=== PATIENT | female | born 1985 | race Caucasian/White ===

== ENCOUNTER 2023-11-23 00:01 | Inpatient (IN) | payer MEDICAID ==
[~2023-11-23] VITALS: Ht 160 cm; Wt 85.3 kg
[2023-11-23] MEDS ORDERED: ONDANSETRON HCL/PF 4 MG/2 ML VIAL ONE ×2 (00:43→03:54)
[2023-11-23] MEDS ORDERED: HYDROMORPHONE 1 MG/1 ML DISP.SYRIN ONE ×2 (00:44→03:55)
[2023-11-23] MEDS: ONDANSETRON HCL/PF - ER 4 MG/2 ML VIAL IV ONE ×2 (00:54→04:00)
[2023-11-23] MEDS: HYDROMORPHONE 1 MG/1 ML DISP.SYRIN IV ONE ×2 (00:54→04:00)
[2023-11-23] MEDS ORDERED: PROPOFOL 20 ML IV ONE (02:07)
[2023-11-23] MEDS: PROPOFOL 200 MG/20 ML VIAL IV ONE ×2 (02:29)
[2023-11-23] MEDS ORDERED: Z GUARD REMEDY 4 OZ OINT TP PRN (04:30)
[2023-11-23] MEDS ORDERED: ONDANSETRON HCL/PF 4 MG/2 ML VIAL IVP PRN (04:30)
[2023-11-23 04:46] VITALS: BP 128/70; TEMP 97.9; O2SAT 100
[2023-11-23 05:39] VITALS: BP 128/70; TEMP 97.9; O2SAT 100
[2023-11-23] MEDS: MORPHINE SULFATE INJ 2 MG/ML DISP.SYRIN IV PRN (05:51)
[2023-11-23 06:50] LABS: BASOPHILS # (AUTO) 0.1 K/uL (0.0-0.2); BASOPHILS % (AUTO) 0.5 % (0.0-2.0); HEMATOCRIT 26 % (33-45); HEMOGLOBIN 8.1 g/dL (11.5-14.8); LYMPHOCYTES % (AUTO) 28.7 % (20.0-44.0); MEAN CORPUSCULAR HEMOGLOBIN 20 PG (26.0-33.0); MEAN CORPUSCULAR HGB CONC 31 g/dl (31.0-36.0); MEAN CORPUSCULAR VOLUME 66 fL (82-100); MONOCYTES # (AUTO) 0.9 K/uL (0.1-1.30); MONOCYTES % (AUTO) 8.2 % (2.0-12.0); NEUTROPHILS # (AUTO) 6.5 K/uL (1.8-8.9); NEUTROPHILS % (AUTO) 62.6 % (43.0-81.0); PLATELET COUNT (AUTO) 287 K/uL (150-450); RED BLOOD CELL COUNT(AUTO) 4.01 MIL/uL (4.0-5.2); RED CELL DISTRIBUTION WIDTH 19.1 % (11.5-15.0); WHITE BLOOD COUNT (AUTO) 10.4 K/uL (4.3-11.0)
[2023-11-23 07:07] LABS: CALCIUM, SERUM 8.7 mg/dL (8.5-10.1); CREATININE 0.7 mg/dL (0.6-1.3); PHOSPHORUS 3.9 mg/dL (2.5-4.9); POTASSIUM 3.5 mmol/L (3.5-5.1)
[2023-11-23] MEDS: ENOXAPARIN SODIUM 40 MG/0.4 ML DISP.SYRIN SQ SCH (07:37)
[2023-11-23 12:28] LABS: IRON, SERUM 13 ug/dl (50-175); TOTAL IRON BINDING CAPACITY 467 ug/dl (250-450)
[2023-11-23 12:42] LABS: FERRITIN 5 ng/mL (8-388)
[2023-11-23 16:00] VITALS: BP 115/68; TEMP 98.2; O2SAT 99
[2023-11-23] MEDS: IV NS 0.9% 1,000 ML IV PRN (17:00)
[2023-11-23 20:00] VITALS: BP 119/72; TEMP 99.1; O2SAT 100
[2023-11-23 20:11] VITALS: BP 119/72; TEMP 99.1; O2SAT 100
[2023-11-24] MEDS: HYDROCODONE/APAP 5/325MG TABLET PO PRN (01:42)
[2023-11-24 08:00] VITALS: BP 118/68; TEMP 98.1; O2SAT 100
[2023-11-24] MEDS ORDERED: HYDR-3972 PO (11:59)
[2023-11-24] MEDS ORDERED: ASPI-992 PO (11:59)
[2023-11-24] MEDS ORDERED: FERR325T23 PO (12:01)
[2023-11-24 16:00] VITALS: BP 119/64; TEMP 98.2; O2SAT 99
[2023-11-24 20:00] VITALS: BP 114/67; TEMP 98.1; O2SAT 100
[2023-11-25 08:00] VITALS: BP 113/69; TEMP 98.4; O2SAT 99
[2023-11-25 11:53] LABS: BASOPHILS % (AUTO) 0.5 % (0.0-2.0); EOSINOPHILS % (AUTO) 0.5 % (0.0-6.0); HEMATOCRIT 28 % (33-45); HEMOGLOBIN 8.5 g/dL (11.5-14.8); LYMPHOCYTES # (AUTO) 2.2 K/uL (0.8-4.8); LYMPHOCYTES % (AUTO) 27.8 % (20.0-44.0); MEAN CORPUSCULAR HEMOGLOBIN 20 PG (26.0-33.0); MEAN CORPUSCULAR HGB CONC 30 g/dl (31.0-36.0); MEAN CORPUSCULAR VOLUME 66 fL (82-100); MONOCYTES # (AUTO) 0.5 K/uL (0.1-1.30); MONOCYTES % (AUTO) 6.1 % (2.0-12.0); NEUTROPHILS # (AUTO) 5.1 K/uL (1.8-8.9); NEUTROPHILS % (AUTO) 65.1 % (43.0-81.0); PLATELET COUNT (AUTO) 321 K/uL (150-450); RED BLOOD CELL COUNT(AUTO) 4.29 MIL/uL (4.0-5.2); RED CELL DISTRIBUTION WIDTH 19.2 % (11.5-15.0); WHITE BLOOD COUNT (AUTO) 7.8 K/uL (4.3-11.0)
[2023-11-25 12:18] LABS: CALCIUM, SERUM 8.8 mg/dL (8.5-10.1); CREATININE 0.7 mg/dL (0.6-1.3); POTASSIUM 3.8 mmol/L (3.5-5.1)
[2023-11-25] MEDS: SOD FERRIC GLUC 125 MG in IV NS 0.9% 100 ML IV SCH (13:06)
[2023-11-25 16:00] VITALS: BP 112/69; TEMP 98.4; O2SAT 99
[2023-11-25 20:10] VITALS: BP 103/74; TEMP 98.2; O2SAT 100
[2023-11-26 08:00] VITALS: BP 109/66; TEMP 98.2; O2SAT 99
[2023-11-26 16:00] VITALS: BP 110/54; TEMP 97.7; O2SAT 99
[2023-11-26] MEDS: QUETIAPINE FUMARATE 25 MG TABLET PO ONE (17:54)
[2023-11-26 20:32] VITALS: BP 113/61; TEMP 98.2; O2SAT 100
[2023-11-27 08:55] VITALS: BP 118/85; TEMP 97.5; O2SAT 97
[2023-11-27] MEDS ORDERED: DOCUSATE SODIUM LIQ 100 MG/10 ML UDC NG SCH (12:00)
[2023-11-27] MEDS: SORBITOL SOLUTION 70% 30 ML SOLUTION PO ONE (12:05)
[2023-11-27] MEDS: LACTULOSE 10 G/15 ML UDC (PYXIS) PO ONE (12:05)
[2023-11-27] MEDS: DOCUSATE SODIUM LIQ 100 MG/10 ML UDC PO SCH (12:05)
[2023-11-27 12:45] VITALS: BP 115/65; TEMP 98.1; O2SAT 100
[2023-11-27 16:16] VITALS: BP 109/82; TEMP 98.4; O2SAT 100
[2023-11-27 20:00] VITALS: BP 112/71; TEMP 98.3; O2SAT 100
[2023-11-28 08:00] VITALS: BP 104/69; TEMP 98.1; O2SAT 100
[2023-11-28 16:00] VITALS: BP 113/70; TEMP 98; O2SAT 100
[2023-11-28 20:00] VITALS: BP 125/69; TEMP 98.3; O2SAT 100
[2023-11-28 22:47] LABS: PREGNANCY TEST URINE QUAL NEGATIVE (NEGATIVE)
[2023-11-29 08:00] VITALS: BP 129/74; TEMP 98.2; O2SAT 99
== END 2023-11-29 17:45 | DRG 342 ==
LOC: ER 00:05 → EDBD 00:05 → MED 04:05
PROVIDERS: ADMIT Nurse Practitioner Acute Care; ATTEND Nurse Practitioner Acute Care
PROC: 0SSGXZZ Reposition Left Ankle Joint, External Approach (ICD-10-PCS; principal; 2023-11-23)
DX: S82.52XA Displaced fracture of medial malleolus of left tibia, initial encounter for closed fracture (principal); D68.59 Other primary thrombophilia; W01.0XXA Fall on same level from slipping, tripping and stumbling without subsequent striking against object, initial encounter; Y92.89 Other specified places as the place of occurrence of the external cause; Z59.00 Homelessness unspecified; D50.9 Iron deficiency anemia, unspecified; E66.9 Obesity, unspecified; Z68.33 Body mass index [BMI] 33.0-33.9, adult; S82.832A Other fracture of upper and lower end of left fibula, initial encounter for closed fracture; S93.05XA Dislocation of left ankle joint, initial encounter; Y93.02 Activity, running; Z88.0 Allergy status to penicillin; S82.842A Displaced bimalleolar fracture of left lower leg, initial encounter for closed fracture; Z74.09 Other reduced mobility; Z86.59 Personal history of other mental and behavioral disorders
CPT/HCPCS: 36415; 73600-TC; 73610-TC; 73630-TC; 80048-TC; 82728-TC; 83540-TC; 83735-TC; 84100-TC; 84703-TC; 85025-TC; 87081-TC; 93971-TC; 97110-TC; 97530-TC; 97535-TC; A4223; G0378; J1170; J1650; J2270; J2405; J2704; J2916; J7030

== ENCOUNTER 2023-12-05 23:13 | Emergency (ER) | payer MEDICAID ==
[~2023-12-05] VITALS: Ht 160 cm; Wt 70.3 kg
[~2023-12-05 23:13] MED LIST: ASPI-992 PO; FERR325T23 PO; HYDR-3972 PO
[2023-12-06 00:13] LABS: BASOPHILS % (AUTO) 0.5 % (0.0-2.0); EOSINOPHILS # (AUTO) 0.1 K/uL (0.0-0.7); EOSINOPHILS % (AUTO) 0.9 % (0.0-6.0); HEMATOCRIT 30 % (33-45); HEMOGLOBIN 9.7 g/dL (11.5-14.8); LYMPHOCYTES % (AUTO) 40.6 % (20.0-44.0); MEAN CORPUSCULAR HEMOGLOBIN 23 PG (26.0-33.0); MEAN CORPUSCULAR HGB CONC 32 g/dl (31.0-36.0); MEAN CORPUSCULAR VOLUME 71 fL (82-100); MONOCYTES # (AUTO) 0.3 K/uL (0.1-1.30); MONOCYTES % (AUTO) 4.2 % (2.0-12.0); NEUTROPHILS % (AUTO) 53.8 % (43.0-81.0); PLATELET COUNT (AUTO) 418 K/uL (150-450); RED BLOOD CELL COUNT(AUTO) 4.29 MIL/uL (4.0-5.2); RED CELL DISTRIBUTION WIDTH 28.4 % (11.5-15.0); WHITE BLOOD COUNT (AUTO) 7.4 K/uL (4.3-11.0)
[2023-12-06 00:23] LABS: CALCIUM, SERUM 8.5 mg/dL (8.5-10.1); CREATININE 0.6 mg/dL (0.6-1.3); POTASSIUM 4.1 mmol/L (3.5-5.1)
[2023-12-06 00:28] LABS: ALBUMIN 3.1 g/dL (3.4-5.0); BILIRUBIN,TOTAL 0.2 mg/dL (0.2-1.0); TOTAL PROTEIN, SERUM 7.1 g/dL (6.4-8.2)
[2023-12-06] MEDS ORDERED: HYDROCODONE/APAP 5/325MG TABLET ONE (02:57)
[2023-12-06] MEDS: HYDROCODONE/APAP 5/325MG TABLET PO ONE (02:57)
[2023-12-06 04:07] VITALS: BP 124/78; TEMP 98.2; O2SAT 98
== END 2023-12-06 04:08 ==
LOC: ER 23:14
DX: S82.891A Other fracture of right lower leg, initial encounter for closed fracture (principal); D64.9 Anemia, unspecified; Z79.899 Other long term (current) drug therapy; Z88.0 Allergy status to penicillin; X58.XXXA Exposure to other specified factors, initial encounter; Y93.89 Activity, other specified; Y92.89 Other specified places as the place of occurrence of the external cause; Y99.8 Other external cause status
CPT/HCPCS: 36415; 73590-TC; 73630-TC; 80053-TC; 85025-TC; 93971-TC